=== PATIENT | female | born 1995 | race Caucasian/White ===

== ENCOUNTER 2022-01-10 21:02 | Emergency (ER) | payer SELFPAY ==
[~2022-01-10] VITALS: Ht 162.6 cm; Wt 90.5 kg
[2022-01-10 21:05] VITALS: BP 122/83
[2022-01-10] MEDS ORDERED: CYCL-711 PO (21:45)
[2022-01-10] MEDS ORDERED: DEXA6TAB8 PO (21:45)
[2022-01-10] MEDS ORDERED: IBUP-2213 PO (21:45)
[2022-01-10] MEDS ORDERED: DICL100G5 TP (21:45)
[2022-01-10] MEDS ORDERED: KETOROLAC 30 MG/ML VIAL IM ONE (21:50)
[2022-01-10 22:00] VITALS: BP 122/83
== END 2022-01-10 22:00 | disposition home or self-care (01) ==
LOC: MED 21:02
DX: R51.9 Headache, unspecified (principal); M79.18 Myalgia, other site; Z79.899 Other long term (current) drug therapy
CPT/HCPCS: 81025; 96372; 99283; J1885